=== PATIENT | female | born 1985 | race Caucasian/White ===

== ENCOUNTER 2016-07-04 22:23 | Emergency (ER) | payer MEDICAID | END 2016-07-05 00:23 | disposition home or self-care (01) | LOC: D.ER 22:23 | DX: R51 Headache (principal) ==

== ENCOUNTER 2016-10-01 21:04 | Emergency (ER) | payer MEDICAID | END 2016-10-01 23:00 | disposition home or self-care (01) | LOC: D.ER 21:04 | DX: M54.5 Low back pain (principal); M54.2 Cervicalgia; F17.200 Nicotine dependence, unspecified, uncomplicated ==

== ENCOUNTER → 2016-10-02 12:36 | Outpatient (CLI) | payer MEDICAID ==
--- NOTE | 2016-10-10 12:24 | EC ---
PATIENT:TIM MALDONADO DATE OF SERVICE: 10/02/16 SEX: F MEDICAL RECORD: [id number] DATE OF : [birth year] LOCATION:D.[facility] AGE OF PATIENT: 31 ADMISSION DATE: 10/02/16 REFERRING PHYSICIAN: INTERPRETING PHYSICIAN: NEGRO DO M.D. ECHOCARDIOGRAM REPORT ECHO CHARGES 4 ECHO COMPLETE CLINICAL DIAGNOSIS: HTN ECHOCARDIOGRAPHIC MEASUREMENTS (adult normal given) AC root (d.<3.7cm) 3. LV Septum d (<1.2 cm> 0.9 Valve Excursion 2.0 LV Septum (systole) 1.4 Left Atria (s.<4.0cm> 3.2 LVPW d(<1.2cm) 1.1 RV (d.<2.3cm) 3.0 LVPW (sytole) 1.5 LV diastole(<5.6CM) 4.2 MV E-F(>70mm/sec) LV systole 3.0 LVOT Diameter 2.0 MV exc.(>10mm) 1.4 Est.ejection fraction (50-75%) Pericardial Effusion N DOPPLER: LVIT A 64.0 E 101 LA RVSP 32 LVOT 88 AOP1/2T Asc. Ao 124 RVOT 74 RA PA 92 AV Gradient Peak 6.16 AV Mean 2.98 AV Area 2.0 MV Gradient Peak 8.62 MV Mean 1.75 MV Area COMMENTS: Sales And Marketing Assistant: Ingrid BRAR Hat Presser:Ingrid Do TAPE# PACS DATE OF SERVICE: 10/02/2016 REFERRING PHYSICIAN: Terrence Estrella. INDICATION: Hypertension. DESCRIPTION: Left ventricle appears normal size and function. No regional wall motion abnormalities are noted. Estimated ejection fraction is 55%. Mitral valve is structurally normal. There is mild regurgitation seen. Left atrium is normal in size. Diastolic filling appears normal. The aortic valve is ECHOCARDIOGRAM REPORT [id number] TIM MALDONADO trileaflet. There is no stenosis or regurgitation seen. Right ventricle appears normal in size and function. Tricuspid valve is structurally normal. There is mild regurgitation noted. Right atrium is normal size. There is no pericardial effusion seen. IMPRESSION: 1. Normal left ventricular size and function, ejection fraction 55%. 2. Mild tricuspid regurgitation. TRANSINT:[id number] Voice Confirmation ID: [id number] DOCUMENT ID: [id number] NEGRO DO M.D. at 1224 CC: [id number] DICTATION DATE: 10/03/1632 FORGE HAND: 10/04/16 0056 DEP CLI 10/02/16 [place] [id number] [place] [id number]
== END | disposition home or self-care (01) ==
LOC: D.ECHO 12:36
DX: I10 Essential (primary) hypertension (principal)

== ENCOUNTER 2017-02-23 16:05 | Emergency (ER) | payer MEDICAID | END 2017-02-23 20:05 | disposition home or self-care (01) | LOC: D.ER 16:05 | DX: M54.5 Low back pain (principal) ==

== ENCOUNTER 2017-04-03 15:42 | Emergency (ER) | payer MEDICAID | END 2017-04-03 17:55 | disposition home or self-care (01) | LOC: D.ER 15:42 | DX: S00.33XA Contusion of nose, initial encounter (principal); W50.0XXA Accidental hit or strike by another person, initial encounter; Y93.89 Activity, other specified; Y92.029 Unspecified place in mobile home as the place of occurrence of the external cause ==

== ENCOUNTER 2017-05-07 12:26 | Emergency (ER) | payer MEDICAID | END 2017-05-07 13:39 | disposition home or self-care (01) | LOC: D.ER 12:26 | DX: S39.012A Strain of muscle, fascia and tendon of lower back, initial encounter (principal); X58.XXXA Exposure to other specified factors, initial encounter; Y93.89 Activity, other specified; Y92.029 Unspecified place in mobile home as the place of occurrence of the external cause; M54.32 Sciatica, left side ==

== ENCOUNTER 2017-07-04 21:18 | Emergency (ER) | payer MEDICAID ==
[2017-07-04 23:15] LABS: APPEARANCE CLEAR (CLEAR); BILIRUBIN NEGATIVE (NEGATIVE); COLOR YELLOW (YELLOW); GLUCOSE NEGATIVE (NEGATIVE); KETONE NEGATIVE (NEGATIVE); NITRITE NEGATIVE (NEGATIVE); PROTEIN NEGATIVE (NEGATIVE); UROBILINOGEN NORMAL (NORMAL)
[2017-07-04 23:22] LABS: UDS - AMPHET NEGATIVE QUAL (NEGATIVE); UDS - BARB NEGATIVE QUAL (NEGATIVE); UDS - BENZO NEGATIVE QUAL (NEGATIVE); UDS - COCAINE NEGATIVE QUAL (NEGATIVE); UDS - OPIATE NEGATIVE QUAL (NEGATIVE); UDS - PCP NEGATIVE QUAL (NEGATIVE); UDS - THC NEGATIVE QUAL (NEGATIVE)
== END 2017-07-05 00:16 | disposition home or self-care (01) ==
LOC: D.ER 21:18
PROVIDERS: Physician Assistant Medical
DX: Z04.1 Encounter for examination and observation following transport accident (principal)